=== PATIENT | female | born 1965 | race Caucasian/White ===

== ENCOUNTER 2022-05-20 10:26 | Outpatient (CLI) | payer OTHER, SELFPAY | END 2022-05-20 10:27 | disposition home or self-care (01) | PROVIDERS: PCP Physician Assistant Medical; Visit Provider Physician Assistant Medical | DX: Z00.00 Encounter for general adult medical examination without abnormal findings (principal); I10 Essential (primary) hypertension; E78.00 Pure hypercholesterolemia, unspecified; Z13.29 Encounter for screening for other suspected endocrine disorder | CPT/HCPCS: 80053; 80061; 84443; 87086; 87186 ==

== ENCOUNTER 2022-12-09 09:21 | Outpatient (CLI) | payer OTHER, SELFPAY | END 2022-12-09 09:22 | disposition home or self-care (01) | LOC: NFLDREF 12-11 13:35 | PROVIDERS: PCP Physician Assistant Medical; Referring Provider Physician Assistant Medical; Visit Provider Physician Assistant Medical | DX: I10 Essential (primary) hypertension (principal); N39.0 Urinary tract infection, site not specified; E78.5 Hyperlipidemia, unspecified; R73.01 Impaired fasting glucose | CPT/HCPCS: 80053; 80061; 87086; 87186; 95810 ==